=== PATIENT | female | born 1955 | race Caucasian/White ===

== ENCOUNTER 2020-08-05 20:08 | Emergency (ER) | payer OTHER ==
[~2020-08-05] VITALS: Ht 170.2 cm; Wt 63.5 kg
[2020-08-05 20:24] VITALS: Ht 170.2 cm; Wt 63.5 kg
[2020-08-05 23:17] VITALS: BP 131/65
== END 2020-08-05 23:17 | disposition home or self-care (01) ==
LOC: ED 20:08
DX: G44.209 Tension-type headache, unspecified, not intractable (principal); N39.0 Urinary tract infection, site not specified
CPT/HCPCS: J1885